=== PATIENT | female | born 2005 | race Caucasian/White ===

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

== ENCOUNTER 2023-01-08 23:20 | Emergency (ER) | payer BC ==
[2023-01-08] MEDS ORDERED: Ketorolac 30 MG/ML SDV IM ONE (23:37)
[2023-01-08] MEDS ORDERED: Cyclobenzaprine 10 MG Tab PO ONE (23:37)
== END 2023-01-09 00:33 | disposition home or self-care (01) ==
LOC: FB.ED 23:20
DX: M54.50 Low back pain, unspecified (principal)
CPT/HCPCS: 96372; 99283; A9270; J1885

== ENCOUNTER 2024-06-29 01:48 | Emergency (ER) | payer BC | END 2024-06-29 02:24 | disposition home or self-care (01) | LOC: FB.ED 01:48 | DX: S02.5XXA Fracture of tooth (traumatic), initial encounter for closed fracture (principal); S01.511A Laceration without foreign body of lip, initial encounter; W22.8XXA Striking against or struck by other objects, initial encounter | CPT/HCPCS: 99283 ==